=== PATIENT | female | born 1985 | race Caucasian/White ===

== ENCOUNTER 2020-09-01 04:07 | Emergency (ER) | payer BC, SELFPAY ==
[2020-09-01 04:08] VITALS: BP 120/48; PULSE 67; RESP 16; TEMP 36.6; O2SAT 100; BMI 32.3; BMI 40.7
[2020-09-01 04:54] LABS: Basophils % 0.5 % (0.1-2.0); Eosinophils # 0.2 K/mm3 (0.0-0.4); Eosinophils % 2.2 % (0.1-12.0); Hematocrit 44.8 % (37.0-47.0); Hemoglobin 14.2 g/dL (12.2-16.2); Lymphocytes % 25.6 % (10-50); Mean Corpuscular HGB Conc 31.8 g/dL (31.8-35.4); Mean Corpuscular Hemoglobin 29.6 pg (27.0-31.2); Mean Corpuscular Volume 93.2 fl (81-99); Mean Platelet Volume 7.8 fl (7.4-10.4); Monocytes # 0.5 K/mm3 (0.1-1.0); Monocytes % 6.9 % (1.7-9.3); Neutrophils % 64.7 % (37.0-80.0); Platelet Count 407 K/mm3 (142-424); Red Blood Count 4.81 M/mm3 (4.20-5.40); Red Cell Distribution Width 12.4 % (11.5-17.5); White Blood Count 7.7 K/mm3 (4.8-10.8)
[2020-09-01 04:57] LABS: Microscopic, Urine URINE MICROSCOPIC (MICROSCOPIC)
[2020-09-01 05:01] LABS: Appearance,Urine CLOUDY (Clear); Blood, Urine TRACE-I (Negative); Color,Urine YELLOW (Yellow); Glucose,Urine (UA) Negative (Negative); Ketones,Urine Negative (Negative); Leukocyte Esterase,Urine Negative (Negative); Nitrate,Urine Negative (Negative); PH,Urine 5.5 (5.0-8.5); Protein,Urine Negative (Negative); Specific Gravity, Urine >= 1.030 (1.005-1.030); Urobilinogen,Urine 0.2 EU/dl (0.2)
[2020-09-01 05:02] LABS: Chloride 106 mmol/L (98-107)
[2020-09-01 05:03] LABS: Potassium 3.9 mmoL/L (3.5-5.1); Sodium 140 mmol/L (136-145)
[2020-09-01 05:03] LABS: Bilirubin,Urine Negative (Negative)
[2020-09-01 05:04] LABS: Squamous Epithelial Cell,Urine 20-50 #/hpf (0-5); Urine Pregnancy, HCG Qual. Negative (Negative)
[2020-09-01 05:05] LABS: Alanine Aminotransferase 27 U/L (12-78); Alkaline Phosphatase 58 U/L (38-126); Amylase 62 U/L (30-110); Anion Gap 11.9 mEq/L (5-15); Aspartate Amino Transferase 39 U/L (14-36); Bilirubin,Total 0.4 mg/dl (0.2-1.3); Blood Urea Nitrogen 9 mg/dl (7-17); Carbon Dioxide 26 mmol/L (22.0-30.0); Creatinine Clearance Estimated 159 mL/min (50-200); Estimated Glomerular Filt Rate 81 ml/min (>60); GFR (African American) 98 ML/MIN (>60)
[2020-09-01 05:06] LABS: Albumin Level 4.1 g/dl (3.5-5.0); Albumin/Globulin Ratio 1.2 (1.1-1.8); Calcium 8.8 mg/dl (8.4-10.2); Globulin 3.3 g/dL (1.3-3.2); Glucose 127 mg/dl (74-100); Lipase 142 U/L (23-300); Total Protein,Serum 7.4 g/dl (6.3-8.2)
--- NOTE | 2020-09-01 05:27 | HMH.EDGENADL ---
ED Disposition Clinical Impression: GERD (gastroesophageal reflux disease) Qualifiers: Esophagitis presence: esophagitis presence not specified Qualified Code(s): K21.9 - Gastro-esophageal reflux disease without esophagitis Disposition: Home, Self-Care Condition on Discharge: Good Instructions: DI for Acute Abdomen Referrals: Jabari Escobar MD [Primary Care Provider] - - Critical Care Critical Care Time: No Attestation: On 09/01/20, the high probability of a clinically significant, sudden or life threatening deterioration of the following system(s) required my full and direct attention, intervention and personal management. The time I documented below is in addition to time spent performing reported procedures but includes the following listed in this critical care notation. Medical Decision Making - Medical Records Medical records reviewed: Yes: I reviewed the patient's medical records. - Horacio Inquiry Pt receiving controlled substance: No Vital Signs: 09/01/20 04:08 Temperature 97.9 F Temperature Source Oral Pulse Rate [Left Radial] 67 Respiratory Rate 16 Blood Pressure [Right Arm] 120/48 L Blood Pressure Mean [Right Arm] 72 Blood Pressure Source [Right Arm] Automatic Cuff Blood Pressure Position [Right Arm] Sitting 02 Sat by Pulse Oximetry 100 Oxygen Delivery Method Room Air - Lab Data Lab Results 09/01/20 04:15: Urine Color Yellow, Urine Appearance Cloudy, Urine pH 5.5, Ur Specific [place] >= 1.030, Urine Protein Negative, Urine Glucose (UA) Negative, Urine Ketones Negative, Urine Blood Trace-i, Urine Nitrate Negative, Urine Bilirubin Negative, Urine Urobilinogen 0.2, Ur Leukocyte Esterase Negative, Urine RBC 3-5, Ur Squamous Epith Cells 20-50 09/01/20 04:15: Urine HCG, Qual Negative 09/01/20 04:25: WBC 7.7, RBC 4.81, Hgb 14.2, Hct 44.8, MCV 93.2, MCH 29.6, MCHC 31.8, RDW 12.4, Plt Count 407, MPV 7.8, Neut % (Auto) 64.7, Lymph % (Auto) 25.6, [place] % (Auto) 6.9, Eos % (Auto) 2.2, Baso % (Auto) 0.5, Neut # (Auto) 5.0, Lymph # (Auto) 2.0, [place] # (Auto) 0.5, Eos # (Auto) 0.2, Baso # (Auto) 0.0 09/01/20 04:25: Sodium 140, Potassium 3.9, Chloride 106, Carbon Dioxide 26, Anion Gap 11.9, BUN 9, Creatinine 0.80, Estimated Creat Clear 159, Estimated GFR 81, Est GFR ( Amer) 98, Glucose 127 H, Calcium 8.8, Total Bilirubin 0.4, AST 39 H, ALT 27, Alkaline Phosphatase 58, Total Protein 7.4, Albumin 4.1, Globulin 3.3 H, Albumin/Globulin Ratio 1.2, Amylase 62, Lipase 142 Result diagrams: 09/01/20 04:25 09/01/20 04:25 Orders (Tests/Meds): ED MEDICATIONS Discontinued Medications Generic Name Dose Route Start Last Admin Trade Name Freq PRN Reason Stop Dose Admin Belladonna Alkaloids 60 ml 09/01/20 05:08 09/01/20 05:09 Gi Cocktail 60ml Udc PO 09/01/20 05:09 60 ml ONCE ONE Administration Ondansetron HCl 4 mg 09/01/20 05:08 09/01/20 05:09 Ondansetron 4mg/2ml Vial IV 09/01/20 05:09 4 mg ONCE ONE Administration Medical Decision Narrative: In summary 35-year-old female presenting for epigastric pain. Patient history of GERD, on omeprazole. Patient has been compliant with medication. Pain started 2 AM this morning, persistent. Abdominal exam does have epigastric tenderness to palpation however is no rebound, no guarding voluntary or involuntary. Patient has had episode of vomiting, not in the ER, nonbloody, nonbilious. Patient's vital signs are stable. Patient had basic blood work performed which was within normal limits. No elevation in lipase, amylase, LFTs. Patient's glucose was elevated at 127. Patient bedside gallbladder ultrasound demonstrated no gallbladder wall thickening, no large stones in the gallbladder neck. In addition patient's Osborn sign is negative. Patient was given Zofran as well as a cocktail. On reassessment, patient's pain is improved. Patient is able to tolerate p.o. Patient attributes this likely to her GI cocktail. Patient was discharged home, eduard
[2020-09-01 06:00] VITALS: BP 117/51; PULSE 64; RESP 16; TEMP 36.6; O2SAT 97
== END 2020-09-01 06:04 | disposition home or self-care (01) ==
PROVIDERS: Emergency Provider Emergency Medicine; PCP Family Medicine
DX: K21.9 Gastro-esophageal reflux disease without esophagitis (principal); R10.13 Epigastric pain; F17.210 Nicotine dependence, cigarettes, uncomplicated; Z88.0 Allergy status to penicillin; Z88.2 Allergy status to sulfonamides
CPT/HCPCS: 80053; 81001; 81025; 82150; 83690; 85025; 96374; 99282; J2405

== ENCOUNTER → 2020-09-25 07:08 | Outpatient (CLI) | payer BC, SELFPAY ==
[2020-09-25 09:27] LABS: HCG Qualitative, Serum Negative (Negative)
[2020-09-25 15:11] LABS: Coronavirus 19 IgG Antibody Negative (Negative); Coronavirus 19 IgM Antibody Negative (Negative)
== END ==
LOC: LAB 07:08
PROVIDERS: Visit Provider Internal Medicine Gastroenterology
DX: Z01.818 Encounter for other preprocedural examination (principal); Z13.810 Encounter for screening for upper gastrointestinal disorder
CPT/HCPCS: 36415; 84703; 86328

== ENCOUNTER 2020-09-27 10:41 | Day surgery (SDC) | payer BC, SELFPAY ==
[2020-09-19 15:52] VITALS: BMI 38.9
[2020-09-27 11:30] VITALS: BP 134/80; PULSE 80; RESP 16; TEMP 36.6; O2SAT 98
--- NOTE | 2020-09-27 12:04 | P.PN_ITS ---
[facility] Anesthesia Checklist - Patient Identification Patient Identification: Arm Band - Structural Data Admitted From: Home Planned Operative Procedure/s: egd Consent for Planned Operative Procedure(s) Verified: Yes Verified Documents: Surgical Consent, History and Physical - NPO Status Verified Time NPO: 00:00 - Additional verifications Anesthesia Reactions: No - Airway Assessment C-Spine Mobility Assessed: Yes (mp2) TMJ Mobility Assessed: Yes Dentition: Good Dentition - Neurological Assessment Level of Consciousness: Awake, Alert - Anesthesia Plan Anesthesia Risk discussed: Yes Anesthesia Plan: Verified ASA Class: II Anesthesia Type: MAC [facility] History I have reviewed the patient's past medical history: Yes Medical History: Reports:: Cancer (cervical), Gastroesophageal Reflux Disease(GERD), Migraine Denies:: Diabetes Mellitus Type 1, Diabetes Mellitus Type 2, Internal Pacemaker, MRSA, Seizures *Have you ever received a pneumonia vaccine?: No *Have you received a flu vaccine this season?: No Anesthesia experience/problems:: nac Laterality Cases: Right: Carpal Tunnel Release Other Surgeries: Yes: . No: Pacemaker Amputation: No Fractures: No - *Social History Last grade of school completed: Some college Smoking Status: Never smoker Alcohol Intake: current Alcohol Intake Frequency:: a few times a month Substance Use Type: denies use *Occupational Status:: employed Housing: house Household Members: spouse, family *Travel in the last 8 weeks: None Family Hx:: No significant family history
--- NOTE | 2020-09-27 12:21 | P.PCN_ITS ---
[facility] Procedure Note Procedure Note:: Upper Endoscopy Procedure Report: Esophagogastroduodenoscopy with cold biopsies Endoscopost: Toby Sommer II, MD Referring Physician: Jabari Escobar MD Date of Procedure: September 27, 2020 Equipment: Olympus GIF 180 standard upper endoscope Sedation: MAC sedation Indications: Mrs. Bill is a 35-year-old female who reports gnawing and burning epigastric abdominal pain and discomfort that can occur 5 to 6 hours postprandially and may often awaken her from sleep. She does have some nausea and bloating. When this occurs she will often have some bilious vomiting. She reports some early satiety. She reports no belching, heartburn, reflux or dysphagia. She has regular bowel function. She is not tied this into any foods and reports no stress. She did go to the emergency department one evening and did have an ultrasound of the abdomen that was essentially normal with reportedly normal gallbladder. She also had lab work showing normal liver and pancreatic chemistries (alkaline phosphatase 58, amylase 62, lipase 142, ALT 27 and total bilirubin 0.4). Procedure: Prior to the procedure, a history and physical exam was performed, and patient's medications and allergies were reviewed. The risks, benefits and alternatives of the sedation and procedure were discussed with the patient. All questions were answered and informed consent was obtained. The patient was brought to the procedure room. Patient identification and proposed procedure were verified by the physician and the nurse. The patient was placed in a left lateral decubitus position and the scope was passed under direct vision. Throughout the procedure, the patient's blood pressure, pulse, and oxygen saturations were monitored continuously. The upper GI endoscopy was accomplished without difficulty. The patient tolerated the procedure well. Findings: The scope was passed directly into the upper esophagus and advanced to the third portion of the duodenum. The post bulbar duodenum and duodenal bulb were normal with normal mucosa and conniventes. The scope was withdrawn through a normal duodenal bulb and pylorus into the stomach. There was mild linear reactive gastropathy of the antrum with bile reflux. There was some mild chronic gastritis of the body and fundus of the stomach. The remainder of the antrum, body and fundus of the stomach were grossly normal. Upon retroflexion there was no hiatal hernia. 2 biopsies were taken in the antrum and along the lesser curvature for histology to rule out gastritis and/or H pylori. The scope was then withdrawn into the esophagus. The remainder of the esophageal mucosa was normal. Impression: 1. Bile reflux with mild linear reactive gastropathy and mild chronic gastritis Plan: I will follow-up the biopsies. I do feel that the patient has some functional dyspepsia. We will discuss additional dietary measures and treatment options.
[2020-09-27 12:22] VITALS: BP 119/77; PULSE 82; RESP 16; TEMP 36.4; O2SAT 96
[2020-09-27 12:32] VITALS: BP 112/78; PULSE 65; RESP 16; TEMP 36.4; O2SAT 99
[2020-09-27 12:42] VITALS: BP 124/86; PULSE 78; RESP 18; TEMP 36.4; O2SAT 99
[2020-09-27 12:52] VITALS: BP 126/92; PULSE 70; RESP 18; TEMP 36.4; O2SAT 98
[2020-09-27 13:36] VITALS: BP 140/85; PULSE 82; RESP 18; TEMP 36.4; O2SAT 99
== END 2020-09-27 13:36 | disposition home or self-care (01) ==
LOC: OUTP 10:42
PROVIDERS: PCP Family Medicine; Visit Provider Internal Medicine Gastroenterology
PROC: 0DJ08ZZ Inspection of Upper Intestinal Tract, Via Natural or Artificial Opening Endoscopic (ICD-10-PCS; CPT 43235; principal; 2020-09-27 12:00)
DX: K21.9 Gastro-esophageal reflux disease without esophagitis (principal); K31.9 Disease of stomach and duodenum, unspecified; K29.50 Unspecified chronic gastritis without bleeding; Z85.41 Personal history of malignant neoplasm of cervix uteri; G43.909 Migraine, unspecified, not intractable, without status migrainosus; Z87.39 Personal history of other diseases of the musculoskeletal system and connective tissue; Z88.0 Allergy status to penicillin; Z88.1 Allergy status to other antibiotic agents; Z88.2 Allergy status to sulfonamides
CPT/HCPCS: 43239

== ENCOUNTER 2020-11-10 03:59 | Emergency (ER) | payer BC, SELFPAY ==
[2020-11-10 04:01] VITALS: BP 146/71; PULSE 63; RESP 16; TEMP 36.5; O2SAT 97; BMI 40.7
--- NOTE | 2020-11-10 04:17 | CT_ITS ---
Procedure: CT ABDOMEN PELVIS W CON Referring Doctor: Sy Martinez Patient Age:35Y CLINICAL INDICATION: N/V Right upper quadrant pain at right abscess around the abdomen. Has had vomiting. COMPARISON: No exams were available for comparison TECHNIQUE: 75 cc Isovue 370 IV contrast utilized but no oral contrast given. Helical axial images obtained with sagittal and coronal reformats. All CT scans at the facility use one or more dose reduction, viz: automated exposure control, ma/kV adjustment per patient size (including targeted exams where dose is matched to indication, i.e. head), or iterative reconstruction technique. FINDINGS: Lower thorax: No acute finding lung bases are clear but no active disease heart normal size. There is a small 5 mm nodule posterior aspect RLL on axial image 8, sagittal image 53. It is fairly dense for size of the early granuloma but cannot confirm such. Would suggest a follow-up CT chest in 6 months confirm stability and evaluate for any other findings heart is normal in size no pericardial effusion. No pleural effusions. ABDOMEN: Liver: No masses or biliary dilatation. Gallbladder: 2.1 cm gallstone with calcified rim is seen towards the neck of the gallbladder. Gallbladder wall appears normal to upper normal thickness. This would benefit from a follow-up ultrasound as outpatient, when feasible.. The common duct appears normal size and caliber through the head of the pancreas and above with no stones here at CBD evident. Liver-no masses. There is suggestion/question of some mild periportal edema noting lucency surrounding the branching portal veins both at the left and right lobe of liver. Requires correlation with LFTs Pancreas: Unremarkable no masses or peripancreatic fluid collections. Spleen: unremarkable Adrenals: unremarkable Kidneys/ureters: A normal enhancement. No obstructive uropathy. Unremarkable PELVIS: IUD in place within the uterus. The inferior stem of the IUD is directed anteriorly angled towards anterior myometrium. A modest3- 4 mm of myometrium reside between the tip of the IUD outer serosal layer uterus. If pelvic pain or symptoms of this may benefit from OBGYN consult No adnexal findings nor masses. No free fluid at the pelvis Bladder: Nondistended. No obvious stones or masses. Appendix: Unremarkable. No distention or periappendiceal phlegmonous change. .. ABDOMEN & PELVIS: Stomach/bowel: Nondistended. No obvious mass or thickening. Moderate solid stool throughout the large bowel. No bowel dilatation or obstruction. The appendix appears normal... Possible small sliding hiatal hernia. Peritoneum: No abnormal fluid collections. No obvious inflammatory changes. No free air. Lymph nodes: No enlarged lymph nodes apparent. Vasculature: No evidence of abdominal aortic aneurysm. No retroperitoneal hemorrhage evident. Bones: No acute fracture or lesions. Mild narrowing L5/S1 disc space IMPRESSION: 1. Cholelithiasis. 1.5 X 2.1 cm gallstone towards neck of gallbladder. No gallbladder distention definitive inflammation.. Only borderline wall thickening. Common duct normal 2. Suggestion of mild diffuse periportal edema. Requires correlation with LFTs 3. .IUD in place, within uterus.. Would note that the inferior stem of the IUD tilts towards and questionably into anterior myometrium; note comments in text. If pain at pelvis this may warrant follow-up 4.. Small less than 5 mm nodule at the posterior RLL. Most likely benign pulmonary nodule; but a follow-up CT chest in 6 months could confirm stability and exclude other features/findings Dictated by: Dima Ward MD 11/10
[2020-11-10 04:29] LABS: Basophils % 0.2 % (0.1-2.0); Eosinophils # 0.1 K/mm3 (0.0-0.4); Hematocrit 45.2 % (37.0-47.0); Hemoglobin 14.9 g/dL (12.2-16.2); Lymphocytes # 1.9 K/mm3 (0.7-4.5); Mean Corpuscular HGB Conc 32.9 g/dL (31.8-35.4); Mean Corpuscular Hemoglobin 29.5 pg (27.0-31.2); Mean Corpuscular Volume 89.4 fl (81-99); Mean Platelet Volume 7.5 fl (7.4-10.4); Monocytes # 0.6 K/mm3 (0.1-1.0); Monocytes % 4.6 % (1.7-9.3); Neutrophils % 79.2 % (37.0-80.0); Platelet Count 416 K/mm3 (142-424); Red Blood Count 5.05 M/mm3 (4.20-5.40); Red Cell Distribution Width 12.9 % (11.5-17.5); White Blood Count 12.6 K/mm3 (4.8-10.8)
[2020-11-10 04:29] LABS: Microscopic, Urine URINE MICROSCOPIC (MICROSCOPIC)
[2020-11-10 04:40] LABS: Appearance,Urine CLOUDY (Clear); Blood, Urine TRACE-I (Negative); Color,Urine YELLOW (Yellow); Glucose,Urine (UA) Negative (Negative); Ketones,Urine Negative (Negative); Leukocyte Esterase,Urine Negative (Negative); Nitrate,Urine Negative (Negative); Protein,Urine TRACE (Negative); Specific Gravity, Urine >= 1.030 (1.005-1.030); Urobilinogen,Urine 0.2 EU/dl (0.2)
[2020-11-10 04:43] LABS: Bilirubin,Urine Negative (Negative)
[2020-11-10 04:44] LABS: Amorphous Sediment,Urine Trace /lpf; Mucus,Urine Trace /lpf; Squamous Epithelial Cell,Urine 50-100 #/hpf (0-5)
[2020-11-10 04:45] LABS: Urine Pregnancy, HCG Qual. Negative (Negative)
[2020-11-10 04:45] LABS: Alanine Aminotransferase 22 U/L (12-78); Albumin Level 4.5 g/dl (3.5-5.0); Albumin/Globulin Ratio 1.3 (1.1-1.8); Alkaline Phosphatase 84 U/L (38-126); Amylase 75 U/L (30-110); Anion Gap 9.7 mEq/L (5-15); Aspartate Amino Transferase 29 U/L (14-36); Bilirubin,Total 0.4 mg/dl (0.2-1.3); Blood Urea Nitrogen 9 mg/dl (7-17); Calcium 9.4 mg/dl (8.4-10.2); Carbon Dioxide 28 mmol/L (22.0-30.0); Chloride 103 mmol/L (98-107); Creatinine Clearance Estimated 141 mL/min (50-200); Estimated Glomerular Filt Rate 70 ml/min (>60); GFR (African American) 85 ML/MIN (>60); Globulin 3.5 g/dL (1.3-3.2); Glucose 143 mg/dl (74-100); Lipase 154 U/L (23-300); Potassium 3.7 mmoL/L (3.5-5.1); Sodium 137 mmol/L (136-145)
[2020-11-10 04:50] LABS: C-Reactive Protein 11.4 mg/L (0-4)
[2020-11-10 04:54] LABS: Erythrocyte Sedimentation Rate 17 mm/hr (0-20)
[2020-11-10 04:55] LABS: Coronavirus 19 IgG Antibody Negative (Negative); Coronavirus 19 IgM Antibody Negative (Negative)
[2020-11-10 05:01] VITALS: BP 122/74; PULSE 52; O2SAT 100
[2020-11-10 06:00] VITALS: BP 110/92; PULSE 67; RESP 15; O2SAT 100
--- NOTE | 2020-11-10 06:01 | HMH.EDNVD ---
ED Disposition Clinical Impression: Abdominal pain Qualifiers: Abdominal location: right upper quadrant Qualified Code(s): R10.11 - Right upper quadrant pain Cholelithiasis Qualifiers: Cholelithiasis location: gallbladder Cholecystitis presence: without cholecystitis Biliary obstruction: without biliary obstruction Qualified Code(s): K80.20 - Calculus of gallbladder without cholecystitis without obstruction Disposition: Home, Self-Care Condition on Discharge: Good Instructions: DI for Gallstones Additional Instructions: keep appt wednesday with pcp Referrals: Jabari Escobar MD [Primary Care Provider] - - Critical Care Critical Care Time: No Attestation: On 11/10/20, the high probability of a clinically significant, sudden or life threatening deterioration of the following system(s) required my full and direct attention, intervention and personal management. The time I documented below is in addition to time spent performing reported procedures but includes the following listed in this critical care notation. Medical Decision Making - Medical Records Medical records reviewed: Yes: I reviewed the patient's medical records. - Horacio Inquiry Pt receiving controlled substance: No Vital Signs: 11/10/20 04:01 Temperature 97.7 F Temperature Source Oral Pulse Rate [Left Radial] 63 Respiratory Rate 16 Blood Pressure [Right Arm] 146/71 H Blood Pressure Mean [Right Arm] 96 Blood Pressure Source [Right Arm] Automatic Cuff Blood Pressure Position [Right Arm] Supine 02 Sat by Pulse Oximetry 97 Oxygen Delivery Method Room Air - Lab Data Lab results reviewed: Yes: I reviewed the patient's lab results. Lab Results 11/10/20 04:05: Urine Color Yellow, Urine Appearance Cloudy, Urine pH 6.0, Ur Specific [place] >= 1.030, Urine Protein Trace, Urine Glucose (UA) Negative, Urine Ketones Negative, Urine Blood Trace-i, Urine Nitrate Negative, Urine Bilirubin Negative, Urine Urobilinogen 0.2, Ur Leukocyte Esterase Negative, Urine RBC 3-5, Ur Squamous Epith Cells 50-100, Amorphous Sediment Trace, Urine Mucus Trace 11/10/20 04:05: Urine HCG, Qual Negative 11/10/20 04:15: WBC 12.6 H, RBC 5.05, Hgb 14.9, Hct 45.2, MCV 89.4, MCH 29.5, MCHC 32.9, RDW 12.9, Plt Count 416, MPV 7.5, Neut % (Auto) 79.2, Lymph % (Auto) 15.0, [place] % (Auto) 4.6, Eos % (Auto) 1.0, Baso % (Auto) 0.2, Neut # (Auto) 10.0 H, Lymph # (Auto) 1.9, [place] # (Auto) 0.6, Eos # (Auto) 0.1, Baso # (Auto) 0.0, ESR 17 11/10/20 04:15: Sodium 137, Potassium 3.7, Chloride 103, Carbon Dioxide 28, Anion Gap 9.7, BUN 9, Creatinine 0.90, Estimated Creat Clear 141, Estimated GFR 70, Est GFR ( Amer) 85, Glucose 143 H, Calcium 9.4, Total Bilirubin 0.4, AST 29, ALT 22, Alkaline Phosphatase 84, C-Reactive Protein 11.4 H, Total Protein 8.0, Albumin 4.5, Globulin 3.5 H, Albumin/Globulin Ratio 1.3, Amylase 75, Lipase 154 11/10/20 04:15: SARS-CoV-2 IgG Ab (Rapid) Negative, SARS-CoV-2 IgM Ab (Rapid) Negative Result diagrams: 11/10/20 04:15 11/10/20 04:15 Orders (Tests/Meds): ED MEDICATIONS Generic Name Dose Route Start Last Admin Trade Name Freq PRN Reason Stop Dose Admin Sodium Chloride 1,000 mls @ 999 mls/hr 11/10/20 04:30 11/10/20 04:22 Sod Chlor 0.9% 1000ml Bag IV 11/10/20 05:30 999 mls/hr .Q1H1M HERMELINDO Administration Discontinued Medications Generic Name Dose Route Start Last Admin Trade Name Freq PRN Reason Stop Dose Admin Belladonna Alkaloids 60 ml 11/10/20 04:19 11/10/20 04:22 Gi Cocktail 60ml Udc PO 11/10/20 04:20 60 ml ONCE ONE Administration Iopamidol 75 ml 11/10/20 05:42 11/10/20 05:43 Iopamidol-370 (76%);100ml Bottle IV 11/10/20 05:43 75 ml ONCE ONE Administration Ketorolac Tromethamine 30 mg 11/10/20 04:19 11/10/20 04:22 Ketorolac 30mg/Ml Vial IV 11/10/20 04:20 30 mg ONCE ONE Administration Ondansetron HCl 4 mg 11/10/20 04:19 11/10/20 04:22 Ondansetron 4mg/2ml Vial IV 11/10/20 04:20 4 mg ONCE ONE
[2020-11-10 06:18] VITALS: BP 121/69; PULSE 61; RESP 16; TEMP 36.7; O2SAT 96
== END 2020-11-10 06:19 | disposition home or self-care (01) ==
PROVIDERS: Emergency Provider Emergency Medicine; PCP Family Medicine
DX: K80.20 Calculus of gallbladder without cholecystitis without obstruction (principal); K21.9 Gastro-esophageal reflux disease without esophagitis; F17.210 Nicotine dependence, cigarettes, uncomplicated; Z88.0 Allergy status to penicillin; Z88.1 Allergy status to other antibiotic agents; Z88.2 Allergy status to sulfonamides
CPT/HCPCS: 74177; 80053; 81001; 81025; 82150; 83690; 85025; 85651; 86140; 86328; 96365; 96375; 99283; J2405; Q9967

== ENCOUNTER → 2020-11-11 11:15 | Outpatient (CLI) | payer BC, SELFPAY ==
--- NOTE | 2020-11-11 11:20 | US_ITS ---
PROCEDURE: US ABDOMEN LIMITED CLINICAL INDICATION: RUQ ABD PAIN, GALLSTONES COMPARISON: CT scan abdomen pelvis 11/10/2020 FINDINGS: PANCREAS: Unremarkable. No obvious mass or abnormal fluid collection. No ductal dilatation LIVER: No focal liver lesions demonstrated. Homogeneous echogenicity. No intrahepatic biliary ductal dilatation evident. There is appropriate direction of blood flow within a non dilated portal vein RIGHT KIDNEY: The right kidney measures 11.3 x 5.0 by 4.6 cm and appears sonographically normal. GALLBLADDER: The gallbladder is partially contracted and there is a large calcified stone measuring 1.8 cm in diameter prominent acoustic shadowing beneath. There is mild diffuse wall thickening with the gallbladder wall measuring 0.5 cm. The common bile duct is normal caliber. IMPRESSION: Cholelithiasis, mildly thickened gallbladder wall which could be secondary to a partial contraction but I suspect that there is true gallbladder wall thickening suggesting some degree of chronic cholecystitis. Dictated by: Dr. Dieter Saleem MD 11/11/2020 12:05 Dr. Dieter Saleem MD in [place] 11/11/2020 12:05
== END ==
PROVIDERS: PCP Family Medicine; Visit Provider Family Medicine
DX: R10.11 Right upper quadrant pain (principal); K80.20 Calculus of gallbladder without cholecystitis without obstruction
CPT/HCPCS: 76705

== ENCOUNTER → 2020-11-20 11:48 | Outpatient (CLI) | payer BC, SELFPAY ==
[2020-11-20 13:07] LABS: Urine Pregnancy, HCG Qual. Negative (Negative)
[2020-11-20 13:09] LABS: Coronavirus 19 IgG Antibody Negative (Negative); Coronavirus 19 IgM Antibody Negative (Negative)
== END ==
PROVIDERS: Visit Provider Surgery
DX: Z01.818 Encounter for other preprocedural examination (principal); Z03.818 Encounter for observation for suspected exposure to other biological agents ruled out; K80.20 Calculus of gallbladder without cholecystitis without obstruction
CPT/HCPCS: 36415; 81025; 86328

== ENCOUNTER 2020-11-22 06:20 | Day surgery (SDC) | payer BC, SELFPAY ==
[2020-11-19 10:31] VITALS: BMI 38.9
[2020-11-22] VITALS (14 sets, daily range): BP systolic 109–124; BP diastolic 57–77; PULSE 58–98; RESP 18–20; TEMP 36.4–43; O2SAT 94–98
--- NOTE | 2020-11-22 08:28 | HMH.OPNOTE ---
Date of procedure: 11/22/20 Pre-op Diagnosis:: Chronic calculus cholecystitis Post-op Diagnosis:: Same Procedure performed:: Laparoscopic cholecystectomy Surgeon:: Chai Damian MD REGISTRATION SPECIALIST:: Zbigniew Pro Anesthesia: GETYesenia Estimated blood loss (mL): 15 Operative findings:: Significant infundibular thickening Operative note:: After informed consent was obtained, the patient was taken to the operating room and placed in the supine position. General anesthesia was induced and the abdomen was prepped and draped in a sterile fashion. After infiltration with local anesthetic an infraumbilical incision was made. A Veress needle was placed in position. The abdomen was insufflated. A 5 mm optical trocar was placed in position. Under direct visualization, a 12 mm trocar was placed in the subxiphoid position and 2 additional 5 mm trocars were placed in the right upper quadrant. The gallbladder was elevated up and over the liver margin. The tissue around the cystic duct was carefully dissected. 3 clips were placed proximally and the duct was transected with harmonic joaquina. Harmonic joaquina were then utilized to dissect the gallbladder away from the liver margin with careful attention to the control of the cystic artery. The gallbladder was placed in a retrieval bag and removed through the subxiphoid trocar site. The right upper quadrant was thoroughly irrigated. No active bleeding or bile leak was noted. Fascia at the subxiphoid trocar site was reapproximated utilizing 0 Ethibond. The remaining trocars were removed. All wounds were irrigated and skin was closed with 4-0 Monocryl in a subcuticular fashion. Steri-Strips were applied. The patient's anesthetic agents were reversed and extubation was completed prior to transfer to recovery in stable condition. Condition: stable Disposition: PACU Specimens:: Gallbladder and contents Complications:: No immediate
--- NOTE | 2020-11-22 08:45 | HMH.ANESCL ---
[facility] Anesthesia Checklist - Patient Identification Patient Identification: Arm Band, Verbal (Name & ) - Structural Data Admitted From: Home Planned Operative Procedure/s: lap appy Consent for Planned Operative Procedure(s) Verified: Yes Verified Documents: History and Physical - NPO Status Verified Time NPO: 00:00 - Chart Verification Results Verified: CBC, BMP - Additional verifications Patient : No Anesthesia Reactions: No Hx Blood Transfusions: Yes Blood Transfusion Reaction: No Cephalosporin Allergy: No Previous Colonoscopy: No - Cardiovascular Assessment Heart Sounds: S1 & S2 Pulse Strength: Baseline Pulse Rhythm: Regular Peripheral Edema: No - Airway Assessment C-Spine Mobility Assessed: Yes TMJ Mobility Assessed: Yes Dentition: Good Dentition - Neurological Assessment Level of Consciousness: Awake, Alert Hx Seizures: No Numbness or tingling in extremities: No - Anesthesia Plan Anesthesia Risk discussed: Yes Anesthesia Plan: Verified ASA Class: II Anesthesia Type: General [facility] History I have reviewed the patient's past medical history: Yes Medical History: Reports:: Gastroesophageal Reflux Disease(GERD), Migraine Denies:: Cancer (LEEP), Diabetes Mellitus Type 1, Diabetes Mellitus Type 2, Internal Pacemaker, MRSA, Seizures *Have you ever received a pneumonia vaccine?: No *Have you received a flu vaccine this season?: No Other Medical History: Denies: Blood Transfusion Reaction Anesthesia experience/problems:: none Laterality Cases: Right: Carpal Tunnel Release Other Surgeries: Yes: , EGD. No: Pacemaker Amputation: No Fractures: Yes - *Social History Last grade of school completed: Advanced degree Smoking Status: Current every day smoker Tobacco Type: cigarettes # Packs/Day (cigarettes): 1 Alcohol Intake: current Alcohol Intake Frequency:: a few times a month Substance Use Type: denies use *Occupational Status:: employed Housing: house Household Members: spouse, family *Travel in the last 8 weeks: None Family Hx:: No significant family history
--- NOTE | 2020-11-22 08:47 | HMH.ANESI ---
[facility] Anesthesia Record Part I Intake, IV Amount: 750 Estimated blood loss (mL): 10 Urine output (mL): 0 Blood Products used (#): none Blood Pressure: 119/77 SaO2: 95 Pulse Rate: 87 Respiratory Rate: 18 Temperature: 98.8 F Patient is:: Drowsy, Stable Stable to PACU at:: 08:43
--- NOTE | 2020-11-22 10:03 | P.PN_ITS ---
[facility] Anesthesia Record Part II Discharge Time: 08:13 Destination: Surgical Day Care (OP Surgery) PACU nurse assessment reviewed?: Yes Patient Condition:: Good Anesthesia Complications:: None Swallowing reflex intact?: Yes Cyanosis?: No Blood Pressure: 123/71 Pulse Rate: 74 Temperature: 97.9 F Mental Status: Alert & Oriented Pain level:: 5 Nausea and/or vomitting:: None Intake, IV Amount: 50
== END 2020-11-22 10:20 | disposition home or self-care (01) ==
LOC: OR 06:21
PROVIDERS: PCP Family Medicine; Visit Provider Surgery
PROC: 0FT44ZZ Resection of Gallbladder, Percutaneous Endoscopic Approach (ICD-10-PCS; CPT 47562; principal; 2020-11-22 07:30)
DX: K80.10 Calculus of gallbladder with chronic cholecystitis without obstruction (principal); K21.9 Gastro-esophageal reflux disease without esophagitis; G43.909 Migraine, unspecified, not intractable, without status migrainosus; Z72.0 Tobacco use; Z87.39 Personal history of other diseases of the musculoskeletal system and connective tissue; Z88.1 Allergy status to other antibiotic agents; Z88.0 Allergy status to penicillin; Z88.2 Allergy status to sulfonamides; Z91.018 Allergy to other foods; Z79.899 Other long term (current) drug therapy
CPT/HCPCS: 47562; 96374; J2405

== ENCOUNTER 2021-07-30 10:47 | Emergency (ER) | payer BC, SELFPAY ==
[2021-07-30 10:58] VITALS: BP 123/77; PULSE 82; RESP 14; TEMP 36.6; O2SAT 100; BMI 38.0
[2021-07-30 11:02] VITALS: BP 123/77; PULSE 82; RESP 14; TEMP 36.6
--- NOTE | 2021-07-30 11:38 | HMH.EDUTC ---
[facility] [place] Impression: Otitis media Qualifiers: Otitis media type: unspecified Laterality: right Qualified Code(s): H66.91 - Otitis media, unspecified, right ear Disposition: Home, Self-Care Condition on Discharge: Good Instructions: Middle Ear Infection, Cephalexin Additional Instructions: *Monitor Temp, Over the counter Motrin or Tylenol as directed/as needed Tylenol every 4 hours and Motrin every 6 hours (as long as your family doctor has told you that you can take it) for fever or pain. and straight to ER if unable to lower temp less than 101.0 after medication given *Warm fluids like tea with honey may help to soothe the throat and open up nasal passages *Sleep elevated *Humidifier/Vaporizer *Take medication as prescribed Follow up with your Family Doctor if no improvement Prescriptions: cephALEXin [cephALEXin 500mg capsule*] 500 mg PO TID 7 Days #21 cap Transmission Status: Pending to [facility] Referrals: Jabari Escobar MD [Primary Care Provider] - As needed Time of Disposition: 11:45 Medical Decision Making - Horacio Inquiry Pt receiving controlled substance: No Horacio was queried for this patient: No Vital Signs: 07/30/21 10:58 07/30/21 11:02 Temperature 97.8 F 97.8 F Temperature Source Oral Pulse Rate 82 Pulse Rate [Left] 82 Respiratory Rate 14 14 Blood Pressure 123/77 Blood Pressure [Right Arm] 123/77 Blood Pressure Mean [Right Arm] 92 02 Sat by Pulse Oximetry 100 Medical Decision Narrative: Patient states that she is allergic to most Cephalosporins but states that she can take Cephalexin that she has taken it before without reactions or complications [facility] [place] - General Stated complaint: possible ear infection Time Seen by Provider: 07/30/21 11:15 Mode of Arrival: Ambulatory Source of Information: Patient Limitations: No Limitations Description of Symptoms (Recalled from Triage Doc. by RN): pt thinks she has bilateral ear infections. pt states they fill full of fluid and are aching. HEENT Symptoms (Recalled from RN notes): Yes (ear aches) Resp Symptoms (Recalled from RN notes): No Skin Symptoms (Recalled from RN notes): No MS Symptoms (Recalled from RN notes): No Functional Status (Recalled from RN notes): na - History of Present Illness Provider Complaint: Patient states that she thinks she has bilateral ear infections States that she has been having pain and pressure in both her ears and feel like they are full States that it has continued to get worse and feels like it did when she had an ear infection before - Related Data Home Medications Medication Instructions Recorded Confirmed levonorgestrel 20 mcg/24 hours (6 20 mcg INTRAUTERI DAILY each 04/23/19 12/04/20 yrs) 52 mg intrauterine device Previous Rx's Medication Instructions Recorded cephALEXin [cephALEXin 500mg 500 mg PO TID 7 Days #21 cap 07/30/21 capsule*] Allergies Allergy/AdvReac Type Severity Reaction Status Date / Time cefazolin Allergy Unknown Verified 12/04/20 10:45 Cephalosporins Allergy Unknown Verified 12/04/20 10:45 dextrose Allergy Unknown Verified 12/04/20 10:45 erythromycin base Allergy Unknown I-HIVES Verified 12/04/20 10:45 penicillin V Allergy Unknown I-HIVES Verified 12/04/20 10:45 Penicillins Allergy Unknown I-HIVES Verified 12/04/20 10:45 prednisolone [PREDNISOLONE] Allergy Unknown SOA Verified 12/04/20 10:45 Sulfa (Sulfonamide Allergy Unknown I-HIVES Verified 12/04/20 10:45 Antibiotics) - Worker's Comp Is this a Worker's Comp case?: No [facility] History - Hepatitis A Screen Drug use history?: No High risk sexual behaviors?: No History of sexually transmitted infection?: No Currently employed?: No Childcare worker?: No Do you have indoor plumbing?: Yes Do you have electricity?: Yes Attestation statement:: This patient has been screened for Hepatitis A risk factors. I have reviewed the patient's past medical history: Yes
--- NOTE | 2021-07-30 11:42 | PC.NURSE ---
pt is allergic to cephalasporins but states she has taken keflex in the past without any reactions.
== END 2021-07-30 11:48 | disposition home or self-care (01) ==
PROVIDERS: Emergency Provider Nurse Practitioner; PCP Family Medicine
DX: H66.91 Otitis media, unspecified, right ear (principal); K21.9 Gastro-esophageal reflux disease without esophagitis; F17.210 Nicotine dependence, cigarettes, uncomplicated; Z88.0 Allergy status to penicillin
CPT/HCPCS: 99202; G0463

== ENCOUNTER → 2021-11-26 12:36 | Outpatient (CLI) | payer BC, SELFPAY | PROVIDERS: Visit Provider Nurse Practitioner | DX: Z20.822 Contact with and (suspected) exposure to COVID-19 (principal) | CPT/HCPCS: C9803; U0003; U0005 ==

== ENCOUNTER 2024-03-18 08:04 | Outpatient (CLI) | payer BC, SELFPAY ==
[2024-03-18 08:44] LABS: Basophils # 0.1 K/mm3 (0-0.2); Basophils % 0.5 % (0.1-2.0); Eosinophils # 0.2 K/mm3 (0.0-0.4); Eosinophils % 1.7 % (0.1-12.0); Hematocrit 42.4 % (37.0-47.0); Hemoglobin 13.9 g/dL (12.2-16.2); Lymphocytes # 1.9 K/mm3 (0.7-4.5); Lymphocytes % 19.6 % (10-50); Mean Corpuscular HGB Conc 32.7 g/dL (31.8-35.4); Mean Corpuscular Hemoglobin 30.3 pg (27.0-31.2); Mean Corpuscular Volume 92.5 fl (81-99); Mean Platelet Volume 7.9 fl (7.4-10.4); Monocytes # 0.5 K/mm3 (0.1-1.0); Monocytes % 4.7 % (1.7-9.3); Neutrophils # 6.9 K/mm3 (1.8-7.8); Neutrophils % 73.4 % (37.0-80.0); Platelet Count 378 K/mm3 (142-424); Red Blood Count 4.59 M/mm3 (4.20-5.40); Red Cell Distribution Width 13.3 % (11.5-17.5); White Blood Count 9.4 K/mm3 (4.8-10.8)
[2024-03-18 11:46] LABS: Alanine Aminotransferase 21 U/L (12-78); Albumin Level 3.9 g/dl (3.5-5.0); Albumin/Globulin Ratio 1.6 (1.1-1.8); Alkaline Phosphatase 66 U/L (38-126); Anion Gap 5.1 mEq/L (5-15); Aspartate Amino Transferase 30 U/L (14-36); Bilirubin,Total 0.5 mg/dl (0.2-1.3); Blood Urea Nitrogen 7 mg/dl (7-17); Carbon Dioxide 28 mmol/L (22.0-30.0); Chloride 107 mmol/L (98-107); Chol/HDL Ratio 2.1 (1-3.5); Cholesterol 122 mg/dl (140-200); Estimated Glomerular Filt Rate 79 ml/min (>60); GFR (African American) 96 ML/MIN (>60); Globulin 2.5 g/dL (1.3-3.2); Glucose 98 mg/dl (74-100); HDL Cholesterol 59 mg/dl (40-60); Potassium 4.1 mmoL/L (3.5-5.1); Sodium 136 mmol/L (136-145); Total Protein,Serum 6.4 g/dl (6.3-8.2); Triglycerides 40 mg/dl (30-150); VLDL Cholesterol 8 mg/dL (0-40)
[2024-03-18 11:57] LABS: Direct LDL Cholesterol 65.99 mg/dL (100-129)
[2024-03-18 12:02] LABS: Microscopic, Urine URINE MICROSCOPIC (MICROSCOPIC)
[2024-03-18 12:03] LABS: Free T4 (Free Thyroxine) 0.91 ng/dl (0.78-2.19)
[2024-03-18 12:04] LABS: 25-OH Vitamin D, Total 38.5 ng/mL (30-100)
[2024-03-18 12:13] LABS: Hemoglobin A1C 5.5 % (4.0-6.0)
[2024-03-18 12:16] LABS: Thyroid Stimulating Hormone 1.26 uIU/mL (0.465-4.68)
[2024-03-18 12:35] LABS: Vitamin B12 699 pg/mL (239-931)
[2024-03-18 13:25] LABS: Appearance,Urine CLEAR (Clear); Bilirubin,Urine Negative (Negative); Blood, Urine Negative (Negative); Color,Urine YELLOW (Yellow); Glucose,Urine (UA) Negative (Negative); Ketones,Urine Negative (Negative); Leukocyte Esterase,Urine Negative (Negative); Nitrate,Urine Negative (Negative); Protein,Urine Negative (Negative); Specific Gravity, Urine 1.025 (1.005-1.030); Urobilinogen,Urine 0.2 EU/dl (0.2)
[2024-03-18 13:42] LABS: Bacteria,Urine 3+ /lpf
[2024-03-18 14:52] LABS: Iron 100 ug/dL (37-170)
[2024-03-18 15:01] LABS: Total Iron Binding Capacity 303 ug/dL (265-497)
[2024-03-19 09:17] LABS: HBsAg Screen Negative (Negative); HCV Ab Non Reactive (Non Reactive); HIV Screen 4th Generation wRfx Non Reactive (Non Reactive); Hep A Ab, IGM Negative (Negative); Hep B Core Ab, IgM Negative (Negative)
[2024-03-19 13:05] LABS: Rapid Plasma Reagin Ab Titer Non Reactive titer (NonRea<1:1)
[2024-03-20 21:07] LABS: Neisseria gonorrhoeae, NAA Negative (Negative)
== END 2024-03-18 23:59 | disposition home or self-care (01) ==
LOC: LAB 08:05
PROVIDERS: PCP Nurse Practitioner Family; Visit Provider Nurse Practitioner Family
DX: Z00.00 Encounter for general adult medical examination without abnormal findings (principal); R53.83 Other fatigue; Z13.1 Encounter for screening for diabetes mellitus; Z13.220 Encounter for screening for lipoid disorders; Z11.59 Encounter for screening for other viral diseases; L81.8 Other specified disorders of pigmentation; Z11.3 Encounter for screening for infections with a predominantly sexual mode of transmission; Z11.4 Encounter for screening for human immunodeficiency virus [HIV]; E66.9 Obesity, unspecified; Z68.41 Body mass index [BMI] 40.0-44.9, adult; Z79.899 Other long term (current) drug therapy; B96.89 Other specified bacterial agents as the cause of diseases classified elsewhere; F17.210 Nicotine dependence, cigarettes, uncomplicated
CPT/HCPCS: 36415; 80053; 80061; 80074; 81001; 82306; 82607; 82728; 83036; 83540; 83550; 84439; 84443; 85025; 86593; 86703; 87086; 87491; 87591; G0432

== ENCOUNTER 2024-05-18 12:27 | Emergency (ER) | payer BC, SELFPAY ==
[2024-05-18 12:40] VITALS: BP 134/78; PULSE 91; RESP 18; TEMP 36.6; O2SAT 99; BMI 38.2
--- NOTE | 2024-05-18 12:51 | ED_ITS ---
Discharge Plan Disposition Patient Disposition: Still a Patient Prescriptions Prescriptions: No Action Mirena 20 mcg/24 hours (5 yrs) 52 mg intrauterine device 20 mcg INTRAUTERI DAILY multivitamin Tablet 1 tab PO DAILY Zepbound 2.5 mg/0.5 mL pen injector 2.5 mg SQ WEEKLY 28 Days Qty: 2 0RF levocetirizine [Xyzal] 5 mg tablet 5 mg PO DAILY Qty: 90 3RF Referrals Follow up/Referrals: Bhavna Kwong APRN [Primary Care Provider] - See instructions Discharge ED Provider: Roni Alegria [facility] [place] HPI General Stated complaint: AO fall 05/17, head lac Mode of Arrival: Ambulatory Source of Information: Patient Limitations: No Limitations Time Seen by Provider: 05/18/24 12:52 Description of Symptoms (Recalled from Triage Doc. by RN): Pt fell over buckets this AM around 0100 and hit head on a 2x4. She has a deep laceration mid hairline. She denies losing consciousness. She states that she has no idea when her last tetnus shot was. She is not currently on a blood thinner. HEENT Symptoms (Recalled from RN notes): No Resp Symptoms (Recalled from RN notes): No Skin Symptoms (Recalled from RN notes): Yes MS Symptoms (Recalled from RN notes): No Functional Status (Recalled from RN notes): N/A History of Present Illness Provider Complaint: 39 yr old female presents for lac to scalp. Pt states she fell over buckets this AM around 0100 and hit head on a 2x4. She has a deep laceration mid hairline. She denies losing consciousness. She states that she has no idea when her last tetnus shot was. She is not currently on a blood thinner. Related Data Home Medications Medication Instructions Recorded Confirmed levonorgestrel 21 mcg/24 hr (up to 20 mcg intrauterine DAILY 04/23/19 05/17/24 8 years) 52 mg intrauterine device control (Mirena) multivitamin 1 tab PO DAILY 01/08/22 05/17/24 Previous Rx's Medication Instructions Recorded levocetirizine 5 mg tablet (Xyzal) 5 mg PO DAILY #90 tabs 05/17/24 tirzepatide (weight loss) 2.5 2.5 mg (0.5 mL) SQ WEEKLY 4 weeks 05/17/24 mg/0.5 mL subcutaneous pen #2 mL injector ([employer]) Allergies Allergy/AdvReac Type Severity Reaction Status Date / Time cefazolin Allergy Unknown Verified 05/18/24 12:52 cefdinir Allergy Unknown Verified 05/18/24 12:52 Cephalosporins Allergy Unknown Verified 05/18/24 12:52 dextrose Allergy Unknown Verified 05/18/24 12:52 erythromycin base Allergy Unknown I-HIVES Verified 05/18/24 12:52 penicillin V Allergy Unknown I-HIVES Verified 05/18/24 12:52 Penicillins Allergy Unknown I-HIVES Verified 05/18/24 12:52 prednisolone [PREDNISOLONE] Allergy Unknown SOA Verified 05/18/24 12:52 Sulfa (Sulfonamide Allergy Unknown I-HIVES Verified 05/18/24 12:52 Antibiotics) Worker's Comp Is this a Worker's Comp case?: No [facility] Disclaimer: The information contained in this section may have been updated after the patient was seen, as this information can be updated by other users. Medical History , WOUND/OSTOMY CLINICAL NURSE SPECIALIST) Cholelithiasis Otitis media Abdominal pain GERD (gastroesophageal reflux disease) Surgical History , WOUND/OSTOMY CLINICAL NURSE SPECIALIST) History of esophagogastroduodenoscopy (EGD) History of carpal tunnel surgery of right wrist H/O right wrist surgery H/O section Hx laparoscopic cholecystectomy No significant past surgical history Family History , WOUND/OSTOMY CLINICAL NURSE SPECIALIST) No significant family history Diabetes Mother Osteoporosis Father Coronary artery disease Mother Anemia Father Hyperlipidemia Mother Kidney disease Mother Heart attack Mother Cancer Mother Father Hypertension Mother Father Thyroid disorder Mother Father Social History , WOUND/OSTOMY CLINICAL NURSE SPECIALIST) Smoking Status: Current some day smoker tobacco type: cigarettes packs per day: 1 alcohol intake: current alcohol intake frequency: a few times a month substance use type: denies use current occupational status: employed Travel in the last 8 weeks: None household members: spouse and family housing: house number of children: 2 current occupation: Customer Service diet: low carbohydrate well-balanced diet: daily or most days caffeine: Yes high-fat food intake: 0-1 times daily daily servings fruits/ve-4 daily servings of milk/calcium: 0-1 eating out: 1-3 times/week reads food labels: usually or always during the past year weight has: remained stable physical activity: walking frequency: 1-2 times per week duration: 15-30 minutes/day ROS Obtained: Yes All systems reviewed & no additional complaints except as documented Constitutional Constitutional: Reports system reviewed and no additional complaints, except as documented Eyes Eyes: Reports system reviewed and no additional complaints, except as documented ENT Ears, Nose, Mouth, and Throat: Reports system reviewed and no additional complaints, except as documented Cardiovascular Cardiovascular: Reports system reviewed and no additional complaints, except as documented Respiratory Respiratory: Reports system reviewed and no additional complaints, except as documented Gastrointestinal Gastrointestingal: Reports system reviewed and no additional complaints, except as documented Musculoskeletal Musculoskeletal: Reports system reviewed and no additional complaints, except as documented Integumentary/Breasts Skin/Breast: Reports system reviewed and no additional complaints, except as documented, Reports as per HPI and Reports wounds (lac) Neurologic Neurologic: Reports system reviewed and no additional complaints, except as documented Endocrine Endocrine: Reports system reviewed and no additional complaints, except as documented Allergic/Immunologic Allergic/Immunologic: Reports system reviewed and no additional complaints, except as documented Physical Exam General General appearance: alert and in no apparent distress Head Head exam: atraumatic Expanded Head Exam Head exam physical: Present laceration Head image: 2 1. deep full thickness laceration. Eye Eye exam: Present normal appearance Neck Neck exam: Present normal inspection Respiratory Respiratory exam: Present normal lung sounds bilaterally Cardiovascular Cardiovascular exam: Present regular rate and normal rhythm Neurological Exam Neurological exam: Present alert and oriented X3 Skin Skin exam: Present warm and other Medical Decision Making Medical Records Medical records reviewed: Yes I reviewed the patient's medical records. Horacio Inquiry Pt receiving controlled substance: No Horacio was queried for this patient: No Vital Signs: 05/18/24 12:40 Temperature 97.9 F Temperature Source Oral Pulse Rate [Right Radial] 91 H Respiratory Rate 18 Blood Pressure [Right Arm] 134/78 Blood Pressure Mean [Right Arm] 96 Blood Pressure Source [Right Arm] Automatic Cuff Blood Pressure Position [Right Arm] Sitting 02 Sat by Pulse Oximetry 99 Oxygen Delivery Method Room Air Physician Consults Physician Consulted: alegria- sent to ed for eval- was a deep full thickness lac Time: 12:56
[2024-05-18 12:53] VITALS: BP 154/75; PULSE 104; RESP 18; TEMP 36.9; O2SAT 97; BMI 38.2
--- NOTE | 2024-05-18 13:06 | PC.NURSE ---
DR KEYS AT BEDSIDE
--- NOTE | 2024-05-18 13:09 | ED_ITS ---
Discharge Plan Disposition Patient Disposition: Home, Self-Care Prescriptions Prescriptions: No Action Mirena 20 mcg/24 hours (5 yrs) 52 mg intrauterine device 20 mcg INTRAUTERI DAILY multivitamin Tablet 1 tab PO DAILY Zepbound 2.5 mg/0.5 mL pen injector 2.5 mg SQ WEEKLY 28 Days Qty: 2 0RF levocetirizine [Xyzal] 5 mg tablet 5 mg PO DAILY Qty: 90 3RF Referrals Follow up/Referrals: Bhavna Kwong APRN [Primary Care Provider] - See instructions Activity Restrictions/Add. Instructions Additional Instructions/Restrictions: At this time it was felt you are safe to be discharged home. If new or worsening symptoms please do not hesitate to return the emergency department. Clinical Impressions Clinical Impression: Complex laceration of scalp, Fall Discharge ED Provider: Roni Knight General Adult HPI <Roin Knight MD - Last Filed: 05/18/24 14:59> General Chief complaint: Head Injury Stated complaint: AO fall 05/17, head lac Time Seen by Provider: 05/18/24 12:52 Mode of Arrival: Ambulatory Source of Information: Patient Limitations: No Limitations Description of Symptoms (Recalled from ER Triage Doc. by RN): Pt fell over buckets this AM around 0100 and hit head on a 2x4. She has a deep laceration mid hairline. She denies losing consciousness. She states that she has no idea when her last tetnus shot was. She is not currently on a blood thinner. History of Present Illness HPI narrative: Patient is a 39-year-old female with no pertinent past medical history who presents emergency department for evaluation of traumatic injury sustained in the fall as a transfer from urgent treatment center. Patient tripped on a bucket approximately 1 this morning fell forward striking her frontal scalp with a 2 x 4. She had a significant laceration and ultimately decided to seek care in urgent care who referred her here for continued evaluation. No other traumatic injuries, Tdap not up-to-date. No anticoagulants. No other acute complaints at this time. Related Data Home Medications Medication Instructions Recorded Confirmed levonorgestrel 21 mcg/24 hr (up to 20 mcg intrauterine DAILY 04/23/19 05/18/24 8 years) 52 mg intrauterine device control (Mirena) multivitamin 1 tab PO DAILY 01/08/22 05/18/24 Previous Rx's Medication Instructions Recorded levocetirizine 5 mg tablet (Xyzal) 5 mg PO DAILY #90 tabs 05/17/24 tirzepatide (weight loss) 2.5 2.5 mg (0.5 mL) SQ WEEKLY 4 weeks 05/17/24 mg/0.5 mL subcutaneous pen #2 mL injector (Zepbound) Allergies Allergy/AdvReac Type Severity Reaction Status Date / Time cefazolin Allergy Unknown Verified 05/18/24 12:52 cefdinir Allergy Unknown Verified 05/18/24 12:52 Cephalosporins Allergy Unknown Verified 05/18/24 12:52 dextrose Allergy Unknown Verified 05/18/24 12:52 erythromycin base Allergy Unknown I-HIVES Verified 05/18/24 12:52 penicillin V Allergy Unknown I-HIVES Verified 05/18/24 12:52 Penicillins Allergy Unknown I-HIVES Verified 05/18/24 12:52 prednisolone [PREDNISOLONE] Allergy Unknown SOA Verified 05/18/24 12:52 Sulfa (Sulfonamide Allergy Unknown I-HIVES Verified 05/18/24 12:52 Antibiotics) [facility] <Roni Knight MD - Last Filed: 05/18/24 14:59> [facility] Disclaimer: The information contained in this section may have been updated after the patient was seen, as this information can be updated by other users. Medical History , PAINT BOOTH OPERATOR) Cholelithiasis Otitis media Abdominal pain GERD (gastroesophageal reflux disease) Surgical History , PAINT BOOTH OPERATOR) History of esophagogastroduodenoscopy (EGD) History of carpal tunnel surgery of right wrist H/O right wrist surgery H/O section Hx laparoscopic cholecystectomy No significant past surgical history Family History , PAINT BOOTH OPERATOR) No significant family history Diabetes Mother Osteoporosis Father Coronary artery disease Mother Anemia Father Hyperlipidemia Mother Kidney disease Mother Heart attack Mother Cancer Mother Father Hypertension Mother Father Thyroid disorder Mother Father Social History , PAINT BOOTH OPERATOR) Smoking Status: Current every day smoker tobacco type: cigarettes packs per day: 1 alcohol intake: current alcohol intake frequency: a few times a month substance use type: denies use current occupational status: employed Travel in the last 8 weeks: None household members: spouse and family housing: house number of children: 2 current occupation: Customer Service diet: low carbohydrate well-balanced diet: daily or most days caffeine: Yes high-fat food intake: 0-1 times daily daily servings fruits/ve-4 daily servings of milk/calcium: 0-1 eating out: 1-3 times/week reads food labels: usually or always during the past year weight has: remained stable physical activity: walking frequency: 1-2 times per week duration: 15-30 minutes/day <Roni Knight MD - Last Filed: 05/18/24 14:59> ROS Obtained: Yes Systems reviewed as appropriate & no additional complaints except as documented Physical Exam <Roni Knight MD - Last Filed: 05/18/24 14:59> General General appearance: alert and in no apparent distress Head Head exam: normocephalic and other (Large V-shaped laceration over the frontal scalp, full-thickness, hemostatic, no obvious contamination.) Eye Eye exam: Present PERRL and EOMI ENT ENT exam: Present mucous membranes moist Neck Neck exam: Present normal inspection and other (No midline tenderness, able to range neck 45 degrees in both directions without midline pain.) Chest Chest inspection: Present normal inspection and symmetric chest wall rise Respiratory Respiratory exam: Absent respiratory distress Cardiovascular Cardiovascular exam: Present normal rhythm Abdominal Exam Abdominal exam: Present soft; Absent tenderness Extremities Exam Extremities exam: Present normal inspection and other (5 out of 5 strength bilateral upper and lower extremities.) Neurological Exam Neurological exam: Present alert and CN II-XII intact; Absent motor sensory deficit Psychiatric Psychiatric exam: Present normal affect Skin Skin exam: Present warm and dry Medical Decision Making <Roni Knight MD - Last Filed: 05/18/24 14:59> Horacio Inquiry Pt receiving controlled substance: No Vital Signs: 05/18/24 12:40 05/18/24 12:53 05/18/24 13:45 Temperature 97.9 F 98.4 F Temperature Source Oral Oral Pulse Rate 87 Pulse Rate [Right Radial] 91 H 104 H Respiratory Rate 18 18 Blood Pressure 125/76 Blood Pressure [Right Arm] 134/78 154/75 H Blood Pressure Mean [Right Arm] 96 101 Blood Pressure Source [Right Arm] Automatic Cuff Blood Pressure Position [Right Arm] Sitting 02 Sat by Pulse Oximetry 99 97 98 Oxygen Delivery Method Room Air Room Air 05/18/24 13:57 Temperature Temperature Source Pulse Rate 103 H Pulse Rate [Right Radial] Respiratory Rate Blood Pressure 141/68 H Blood Pressure [Right Arm] Blood Pressure Mean [Right Arm] Blood Pressure Source [Right Arm] Blood Pressure Position [Right Arm] 02 Sat by Pulse Oximetry 100 Oxygen Delivery Method Lab Data Lab Results 05/18/24 13:20: Urine HCG, Qual Negative Orders (Tests/Meds): ED MEDICATIONS Discontinued Medications Generic Name Dose Route Start Last Admin Trade Name Freq PRN Reason Stop Dose Admin Acetaminophen 1,000 mg 05/18/24 13:09 05/18/24 13:17 Acetaminophen 500mg Tab PO 05/18/24 13:10 1,000 mg ONCE ONE Administration Tetanus/Reduced Diphtheria/Acell Pertussis 0.5 ml 05/18/24 13:08 05/18/24 13:17 Tet/Diphth/Pert-Adult 0.5ml Syringe IM 05/18/24 13:09 0.5 ml .ONCE ONE Administration ORDERS Category Date Time Status CT head/brain wo con Stat Cat Scan 05/18/24 13:47 Completed Urine , HCG Qual. Stat Lab 05/18/24 13:20 Completed Medical Decision Narrative: In summary patient is a 39-year-old female past medical history described above presents emergency department for evaluation of traumatic injury sustained in a fall. Patient is hemodynamically stable nontoxic-appearing upon arrival, afebrile. Patient has significant full-thickness laceration over the frontal scalp that is hemostatic. Noncontrasted CT scan of the head will be obtained to rule out intracranial hemorrhage. Cervical spine cleared per [place] guidelines. Tdap will be updated. Initial inventions include Tylenol. CT imaging informally visualized by me, no acute large intracranial hemorrhage. Formal read shows no acute intracranial abnormality. I numbed the patient with approximately 12 cc of 1% lidocaine with epinephrine. Laceration was repaired by Dalton Barrrea at bedside. Patient tolerated the procedure well. Patient is appropriate for discharge at this time. Laceration 1: Repaired by Dalton Barrera. Site: scalp Size (cm): 10 Description: flap Depth: involves subcutaneous layer Local Anesthetic: lidocaine 1% Amount of anesthesia used (mL): 20 Pre-repair: wound explored, irrigated extensively and deep structures intact Skin layer closed with: other (17 keven) Subcutaneous layer closed with: vicryl Size: 4-0 Number of sutures: 4 Technique: simple, interrupted <ZARI Fregoso - Last Filed: 05/18/24 14:56> Vital Signs: 05/18/24 12:40 05/18/24 12:53 05/18/24 13:45 Temperature 97.9 F 98.4 F Temperature Source Oral Oral Pulse Rate 87 Pulse Rate [Right Radial] 91 H 104 H Respiratory Rate 18 18 Blood Pressure 125/76 Blood Pressure [Right Arm] 134/78 154/75 H Blood Pressure Mean [Right Arm] 96 101 Blood Pressure Source [Right Arm] Automatic Cuff Blood Pressure Position [Right Arm] Sitting 02 Sat by Pulse Oximetry 99 97 98 Oxygen Delivery Method Room Air Room Air 05/18/24 13:57 Temperature Temperature Source Pulse Rate 103 H Pulse Rate [Right Radial] Respiratory Rate Blood Pressure 141/68 H Blood Pressure [Right Arm] Blood Pressure Mean [Right Arm] Blood Pressure Source [Right Arm] Blood Pressure Position [Right Arm] 02 Sat by Pulse Oximetry 100 Oxygen Delivery Method Lab Data Lab Results 05/18/24 13:20: Urine HCG, Qual Negative Orders (Tests/Meds): ED MEDICATIONS Discontinued Medications Generic Name Dose Route Start Last Admin Trade Name Osielq PRN Reason Stop Dose Admin Acetaminophen 1,000 mg 05/18/24 13:09 05/18/24 13:17 Acetaminophen 500mg Tab PO 05/18/24 13:10 1,000 mg ONCE ONE Administration Tetanus/Reduced Diphtheria/Acell Pertussis 0.5 ml 05/18/24 13:08 05/18/24 13:17 Tet/Diphth/Pert-Adult 0.5ml Syringe IM 05/18/24 13:09 0.5 ml .ONCE ONE Administration ORDERS Category Date Time Status CT head/brain wo con Stat Cat Scan 05/18/24 13:47 Completed Urine , HCG Qual. Stat Lab 05/18/24 13:20 Completed Critical Care <ZARI Fregoso - Last Filed: 05/18/24 14:56> Critical Care Time Critical Care Time: No
[2024-05-18] MEDS: TET/DIPHTH/PERT-ADULT 0.5ML SYRINGE 0.5 ML IM (13:17)
[2024-05-18] MEDS: ACETAMINOPHEN 500MG TAB 1000 MG PO (13:17)
[2024-05-18 13:31] LABS: Urine Pregnancy, HCG Qual. Negative (Negative)
[2024-05-18 13:45] VITALS: BP 125/76; PULSE 87; O2SAT 98
--- NOTE | 2024-05-18 13:47 | CT_ITS ---
PROCEDURE INFORMATION: Exam: CT Head Without Contrast Exam date and time: 05/18/2024 1:53 PM Age: 39 years old Clinical indication: Injury or trauma; Fall; Concussion/head injury and laceration; Without loss of consciousness; Without residual foreign body; Scalp; Additional info: Fall, frontal scalp lac TECHNIQUE: Imaging protocol: Computed tomography of the head without contrast. Radiation optimization: All CT scans at this facility use at least one of these dose optimization techniques: automated exposure control; mA and/or kV adjustment per patient size (includes targeted exams where dose is matched to clinical indication); or iterative reconstruction. COMPARISON: No relevant prior studies available. FINDINGS: Brain: No acute intracranial hemorrhage, cerebral edema, or midline shift. Cerebral ventricles: No hydrocephalus. Paranasal sinuses: There is no acute sinusitis. Mastoid air cells: Visualized mastoid air cells are well aerated. Orbital cavities: The visualized orbits appear unremarkable. Bones: Unremarkable. No acute fracture. Soft tissues: A right frontal scalp laceration is present. IMPRESSION: No acute intracranial abnormality.
--- NOTE | 2024-05-18 13:54 | PC.NURSE ---
PT TO CT
[2024-05-18 13:57] VITALS: BP 141/68; PULSE 103; O2SAT 100
--- NOTE | 2024-05-18 14:50 | HMH.EDGENADL ---
Discharge Plan Disposition Patient Disposition: Home, Self-Care Prescriptions Prescriptions: No Action Mirena 20 mcg/24 hours (5 yrs) 52 mg intrauterine device 20 mcg INTRAUTERI DAILY multivitamin Tablet 1 tab PO DAILY Zepbound 2.5 mg/0.5 mL pen injector 2.5 mg SQ WEEKLY 28 Days Qty: 2 0RF levocetirizine [Xyzal] 5 mg tablet 5 mg PO DAILY Qty: 90 3RF Referrals Follow up/Referrals: Bhavna Kwong APRN [Primary Care Provider] - See instructions Activity Restrictions/Add. Instructions Additional Instructions/Restrictions: At this time it was felt you are safe to be discharged home. If new or worsening symptoms please do not hesitate to return the emergency department. Clinical Impressions Clinical Impression: Complex laceration of scalp, Fall Discharge ED Provider: Roni Knight General Adult HPI General Chief complaint: Head Injury Stated complaint: AO fall 05/17, head lac Time Seen by Provider: 05/18/24 12:52 Mode of Arrival: Ambulatory Source of Information: Patient Limitations: No Limitations Description of Symptoms (Recalled from ER Triage Doc. by RN): Pt fell over buckets this AM around 0100 and hit head on a 2x4. She has a deep laceration mid hairline. She denies losing consciousness. She states that she has no idea when her last tetnus shot was. She is not currently on a blood thinner. Related Data Home Medications Medication Instructions Recorded Confirmed levonorgestrel 21 mcg/24 hr (up to 20 mcg intrauterine DAILY 04/23/19 05/18/24 8 years) 52 mg intrauterine device control (Mirena) multivitamin 1 tab PO DAILY 01/08/22 05/18/24 Previous Rx's Medication Instructions Recorded levocetirizine 5 mg tablet (Xyzal) 5 mg PO DAILY #90 tabs 05/17/24 tirzepatide (weight loss) 2.5 2.5 mg (0.5 mL) SQ WEEKLY 4 weeks 05/17/24 mg/0.5 mL subcutaneous pen #2 mL injector (Zepbound) Allergies Allergy/AdvReac Type Severity Reaction Status Date / Time cefazolin Allergy Unknown Verified 05/18/24 12:52 cefdinir Allergy Unknown Verified 05/18/24 12:52 Cephalosporins Allergy Unknown Verified 05/18/24 12:52 dextrose Allergy Unknown Verified 05/18/24 12:52 erythromycin base Allergy Unknown I-HIVES Verified 05/18/24 12:52 penicillin V Allergy Unknown I-HIVES Verified 05/18/24 12:52 Penicillins Allergy Unknown I-HIVES Verified 05/18/24 12:52 prednisolone [PREDNISOLONE] Allergy Unknown SOA Verified 05/18/24 12:52 Sulfa (Sulfonamide Allergy Unknown I-HIVES Verified 05/18/24 12:52 Antibiotics) [facility] Disclaimer: The information contained in this section may have been updated after the patient was seen, as this information can be updated by other users. Medical History , PUFFER TENDER) Cholelithiasis Otitis media Abdominal pain GERD (gastroesophageal reflux disease) Surgical History , PUFFER TENDER) History of esophagogastroduodenoscopy (EGD) History of carpal tunnel surgery of right wrist H/O right wrist surgery H/O section Hx laparoscopic cholecystectomy No significant past surgical history Family History , PUFFER TENDER) No significant family history Diabetes Mother Osteoporosis Father Coronary artery disease Mother Anemia Father Hyperlipidemia Mother Kidney disease Mother Heart attack Mother Cancer Mother Father Hypertension Mother Father Thyroid disorder Mother Father Social History , PUFFER TENDER) Smoking Status: Current every day smoker tobacco type: cigarettes packs per day: 1 alcohol intake: current alcohol intake frequency: a few times a month substance use type: denies use current occupational status: employed Travel in the last 8 weeks: None household members: spouse and family housing: house number of children: 2 current occupation: Customer Service diet: low carbohydrate well-balanced diet: daily or most days caffeine: Yes high-fat food intake: 0-1 times daily daily servings fruits/ve-4 daily servings of milk/calcium: 0-1 eating out: 1-3 times/week reads food labels: usually or always during the past year weight has: remained stable physical activity: walking frequency: 1-2 times per week duration: 15-30 minutes/day ROS Obtained: Yes All systems reviewed & no additional complaints except as documented Physical Exam General General appearance: alert and in no apparent distress Respiratory Respiratory exam: Present normal lung sounds bilaterally Cardiovascular Cardiovascular exam: Present regular rate Neurological Exam Neurological exam: Present alert, oriented X3 and CN II-XII intact Medical Decision Making Horacio Inquiry Pt receiving controlled substance: No Vital Signs: 05/18/24 12:40 05/18/24 12:53 05/18/24 13:45 Temperature 97.9 F 98.4 F Temperature Source Oral Oral Pulse Rate 87 Pulse Rate [Right Radial] 91 H 104 H Respiratory Rate 18 18 Blood Pressure 125/76 Blood Pressure [Right Arm] 134/78 154/75 H Blood Pressure Mean [Right Arm] 96 101 Blood Pressure Source [Right Arm] Automatic Cuff Blood Pressure Position [Right Arm] Sitting 02 Sat by Pulse Oximetry 99 97 98 Oxygen Delivery Method Room Air Room Air 05/18/24 13:57 Temperature Temperature Source Pulse Rate 103 H Pulse Rate [Right Radial] Respiratory Rate Blood Pressure 141/68 H Blood Pressure [Right Arm] Blood Pressure Mean [Right Arm] Blood Pressure Source [Right Arm] Blood Pressure Position [Right Arm] 02 Sat by Pulse Oximetry 100 Oxygen Delivery Method Lab Data Lab Results 05/18/24 13:20: Urine HCG, Qual Negative Orders (Tests/Meds): ED MEDICATIONS Discontinued Medications Generic Name Dose Route Start Last Admin Trade Name Dylan PRN Reason Stop Dose Admin Acetaminophen 1,000 mg 05/18/24 13:09 05/18/24 13:17 Acetaminophen 500mg Tab PO 05/18/24 13:10 1,000 mg ONCE ONE Administration Tetanus/Reduced Diphtheria/Acell Pertussis 0.5 ml 05/18/24 13:08 05/18/24 13:17 Tet/Diphth/Pert-Adult 0.5ml Syringe IM 05/18/24 13:09 0.5 ml .ONCE ONE Administration ORDERS Category Date Time Status CT head/brain wo con Stat Cat Scan 05/18/24 13:47 Completed Urine , HCG Qual. Stat Lab 05/18/24 13:20 Completed Procedures Laceration Laceration 1: Site: scalp Size (cm): 10 Description: flap Depth: involves subcutaneous layer Local Anesthetic: lidocaine 1% Amount of anesthesia used (mL): 20 Pre-repair: wound explored, irrigated extensively and deep structures intact Skin layer closed with: other (17 keven) Subcutaneous layer closed with: vicryl Size: 4-0 Number of sutures: 4 Technique: simple, interrupted Critical Care Critical Care Time Critical Care Time: No
[2024-05-18 15:12] VITALS: BP 140/80; PULSE 90; RESP 18; TEMP 36.9; O2SAT 98
== END 2024-05-18 15:13 | disposition home or self-care (01) ==
LOC: UTC 12:31 → ER 12:52
PROVIDERS: Emergency Provider Emergency Medicine; PCP Nurse Practitioner Family
DX: S01.01XA Laceration without foreign body of scalp, initial encounter (principal); W01.198A Fall on same level from slipping, tripping and stumbling with subsequent striking against other object, initial encounter; Z23 Encounter for immunization
CPT/HCPCS: 12034; 70450; 81025; 90471; 90715; 99283

== ENCOUNTER 2025-03-13 08:31 | Outpatient (CLI) | payer BC, SELFPAY ==
[2025-03-13 09:02] LABS: Basophils % 0.4 % (0.1-2.0); Eosinophils # 0.1 Kmm3 (0.0-0.4); Eosinophils % 1.6 % (0.1-12.0); Hematocrit 40.2 % (37.0-47.0); Hemoglobin 13.2 g/dL (12.2-16.2); Lymphocytes # 2.5 K/mm3 (0.7-4.5); Lymphocytes % 31.4 % (10-50); Mean Corpuscular HGB Conc 32.8 g/dL (31.8-35.4); Mean Corpuscular Hemoglobin 29.5 pg (27.0-31.2); Mean Corpuscular Volume 89.9 fl (81-99); Mean Platelet Volume 9.6 fl (7.4-10.4); Monocytes # 0.6 K/mm3 (0.1-1.0); Monocytes % 7.7 % (1.7-9.3); Neutrophils # 4.7 K/mm3 (1.8-7.8); Neutrophils % 58.8 % (37.0-80.0); Nucleated Red Blood Cells # 0 10^3/uL; Nucleated Red Blood Cells % 0 %; Platelet Count 385 K/mm3 (142-424); Red Blood Count 4.47 M/mm3 (4.20-5.40); Red Cell Distribution Width 12.5 % (11.5-17.5); Red Cell Distribution Width-SD 41.4 fL; White Blood Count 7.9 K/mm3 (4.8-10.8)
[2025-03-13 09:49] LABS: Albumin Level 4.3 g/dl (3.5-5.0); Chloride 107 mmol/L (98-107); Potassium 4.1 mmoL/L (3.5-5.1); Sodium 140 mmol/L (136-145)
[2025-03-13 09:51] LABS: Alanine Aminotransferase 22 U/L (12-78); Alkaline Phosphatase 61 U/L (38-126); Aspartate Amino Transferase 29 U/L (14-36); Bilirubin,Total 0.3 mg/dl (0.2-1.3); Blood Urea Nitrogen 12 mg/dl (7-17); Estimated Glomerular Filt Rate 69 ml/min (>60); GFR (African American) 83 ML/MIN (>60)
[2025-03-13 09:52] LABS: Albumin/Globulin Ratio 1.6 (1.1-1.8); Anion Gap 10.1 mEq/L (5-15); Calcium 9.6 mg/dl (8.4-10.2); Carbon Dioxide 27 mmol/L (22.0-30.0); Chol/HDL Ratio 2.3 (1-3.5); Cholesterol 120 mg/dl (140-200); Globulin 2.7 g/dL (1.3-3.2); Glucose 100 mg/dl (74-100); HDL Cholesterol 53 mg/dl (40-60); Iron 104 ug/dL (37-170); Triglycerides 45 mg/dl (30-150); VLDL Cholesterol 9 mg/dL (0-40)
[2025-03-13 09:57] LABS: Hemoglobin A1C 5.4 % (4.0-6.0)
[2025-03-13 10:02] LABS: Total Iron Binding Capacity 333 ug/dL (265-497)
[2025-03-13 10:03] LABS: Direct LDL Cholesterol 56.16 mg/dL (100-129)
[2025-03-13 10:07] LABS: Free T4 (Free Thyroxine) 0.97 ng/dl (0.78-2.19)
[2025-03-13 10:09] LABS: 25-OH Vitamin D, Total 60.4 ng/mL (30-100)
[2025-03-13 10:27] LABS: Ferritin 60.5 ng/ml (6.24-137)
[2025-03-13 11:39] LABS: Vitamin B12 906 pg/mL (239-931)
== END 2025-03-13 23:59 | disposition home or self-care (01) ==
LOC: LAB 08:32
PROVIDERS: PCP Nurse Practitioner Family; Visit Provider Nurse Practitioner Family
DX: R53.83 Other fatigue (principal); Z13.220 Encounter for screening for lipoid disorders; Z68.39 Body mass index [BMI] 39.0-39.9, adult; Z00.00 Encounter for general adult medical examination without abnormal findings; E66.9 Obesity, unspecified; Z13.1 Encounter for screening for diabetes mellitus
CPT/HCPCS: 36415; 80053; 80061; 82306; 82607; 82728; 83036; 83540; 83550; 84439; 84443; 85025

== ENCOUNTER 2025-03-23 08:05 | Outpatient (CLI) | payer BC, SELFPAY ==
--- NOTE | 2025-03-23 08:30 | MM_ITS ---
PROCEDURE INFORMATION: Exam: MG Bilateral Screening 3D Mammography Exam date and time: 03/23/2025 8:42 AM Age: 39 years old Clinical indication: Screening examination; Additional info: Breast cancer screening TECHNIQUE: Imaging protocol: Bilateral Screening tomosynthesis and 2D mammography including computer-aided detection (CAD) when performed. COMPARISON: 1. MG DMDXUR DIG MAMM-DX UNI-RT 11/12/2015 1:10 PM 2. MG DMDXUAVR DIG MAMM-DX UNI ADD VIEWS-RT 05/22/2015 2:02 PM FINDINGS: MAMMOGRAPHY: Breast composition: There are scattered areas of fibroglandular density. Mass: None. Architectural distortion: None. Calcifications: No suspicious calcifications. Asymmetric density: None. Skin thickening: None. Axillary adenopathy: None. IMPRESSION: No mammographic evidence of malignancy. Annual screening is recommended unless otherwise clinically indicated. ASSESSMENT: BI-RADS Category 1: Negative.
== END 2025-03-23 23:59 | disposition home or self-care (01) ==
LOC: RAD 08:05
PROVIDERS: PCP Nurse Practitioner Family; Visit Provider Nurse Practitioner Family
DX: Z12.31 Encounter for screening mammogram for malignant neoplasm of breast (principal)
CPT/HCPCS: 77063; 77067

== ENCOUNTER 2025-04-26 15:42 | Outpatient (CLI) | payer SELFPAY ==
--- NOTE | 2025-04-26 15:46 | XR_ITS ---
FINAL REPORT CLINICAL HISTORY: injury, right hand pain, right middle finger pain right 3rd pip joint pain after getting finger caught between 2 sheets of metal; states intermittent pain when moved a certain way FINDINGS: RIGHT HAND Three views were obtained. There is no fracture or dislocation. The joint spaces appear normal. No soft tissue abnormality is identified. IMPRESSION: No acute process. Reviewed, Interpreted and Dictated by Ricky Villatoro MD Transcribed by Shweta Arriaza Authenticated and [facility]
--- OUTSIDE RECORDS SUMMARY | 2025-04-26 15:46 | XMS_ITS | Clinical Summary ---
Author Organization [facility] Address [address] [place] [address] Care Team Providers Care Barrel Scraper Name Role Phone Bhavna Kwong APRN Primary Care Provider [phone] Family History Medical History Relation Name Comments BRCA 1 Negative Maternal Aunt Breast Cancer Maternal Aunt under 50 BRCA 1 Negative Mother Breast Cancer Mother over 50 Relation Name Status Comments Maternal Aunt Mother Social History Tobacco Use Types Packs/Day Years Used Date Smoking Tobacco: Never Smokeless Tobacco: Never Comments No Sex and Gender Information Value Date Recorded Sex Assigned at Not on file Legal Sex Female 12:05 PM EDT Gender Identity Not on file Sexual Orientation Not on file Last Filed Vital Signs Vital Sign Reading Time Taken Comments Blood Pressure - - Pulse - - Temperature - - Respiratory Rate - - Oxygen Saturation - - Inhaled Oxygen Concentration - - Weight 97.5 kg (215 lb) 08/06/2021 3:17 PM EDT Height 160 cm (5' 3 ) 08/06/2021 3:17 PM EDT Body Mass Index 38.09 08/06/2021 3:17 PM EDT Plan of Treatment Not on file Insurance [facility] Care Teams Barrel Scraper Relationship Specialty Start Date End Date Bhavna Kwong APRN [address] [facility] [address] PCP - General Family Practice 01/22/25
== END 2025-04-26 23:59 | disposition home or self-care (01) ==
PROVIDERS: PCP Nurse Practitioner Family; Visit Provider Nurse Practitioner Family
DX: M79.641 Pain in right hand (principal); M79.644 Pain in right finger(s)
CPT/HCPCS: 73130